=== PATIENT | male | born 1940 | race Caucasian/White ===

== ENCOUNTER 2024-12-13 01:13 | Inpatient (IN) | payer MEDICARE, MEDICAID ==
[~2024-12-13] VITALS: Ht 177.8 cm; Wt 65.5 kg
[2024-12-13] MEDS: SODIUM CHLORIDE 0.9% (SEPSIS BOLUS) IV ONE (01:46)
[2024-12-13] MEDS: ONDANSETRON HCL 4MG/2ML INJ IV STA (02:01)
[2024-12-13] MEDS: PIPERACILLIN/TAZO 3.375G/50ML 50 ML IV ONE (02:02)
[2024-12-13] MEDS: PANTOPRAZOLE SODIUM 40 MG/VIAL IV ONE (02:02)
[2024-12-13 02:07] LABS: INR 1.1; PROTHROMBIN TIME 11.8 sec (9.6-11.0)
[2024-12-13 02:11] LABS: BASOPHILS % 0.2 % (0.0-2.0); EOSINOPHILS % 4.2 % (0.0-5.0); HEMATOCRIT. 36.5 % (42.0-52.0); HEMOGLOBIN. 11.7 g/dL (14.0-18.0); LYMPHOCYTES % 15.6 % (20.0-50.0); MEAN CORPUSCULAR HEMOGLOBIN 30.7 pg (28.0-32.0); MEAN CORPUSCULAR VOLUME 95.9 fL (80.0-94.0); MEAN PLATELET VOLUME 10.2 fl (7.4-10.4); MONOCYTES % 6.5 % (2.0-8.0); NEUTROPHILS % 73.5 % (40.0-76.0); PLATELET 175 x1000/uL (130-400); RED BLOOD CELL COUNT 3.81 mill/uL (4.7-6.1); RED CELL DISTRIBUTION WIDTH 16.4 % (11.6-14.6); WHITE BLOOD COUNT 12.6 x1000/uL (4.5-11.0)
[2024-12-13] MEDS: VANCOMYCIN 1G PREMIX 200 ML IV ONE (02:44)
[2024-12-13 02:50] LABS: CHLORIDE 145 mEq/L (98-107); POTASSIUM 5.2 mEq/L (3.5-5.1)
[2024-12-13 02:51] LABS: CARBON DIOXIDE 18 mEq/L (21-32)
[2024-12-13 02:56] LABS: GLUCOSE 157 mg/dL (70-105)
[2024-12-13 02:57] LABS: TROPONIN I HIGH SENSITIVITY 51 ng/L (3.0-53)
[2024-12-13 02:58] LABS: ALANINE AMINOTRANSFERASE 84 IU/L (10-49); ALBUMIN 3.9 g/dL (3.2-4.8); ASPARTATE AMINOTRANSFERASE 49 IU/L (<34)
[2024-12-13 02:59] LABS: BILIRUBIN TOTAL 0.2 mg/dL (0.1-1.0); PROTEIN TOTAL 7.4 g/dL (6.0-8.3)
[2024-12-13 03:19] LABS: BILIRUBIN DIRECT < 0.1 mg/dL (<=3.0)
[2024-12-13 03:23] LABS: SODIUM 186 mEq/L (136-145)
[2024-12-13 03:34] LABS: UREA NITROGEN BLOOD 176 mg/dL (9-23)
[2024-12-13] MEDS: DEXT 5%/0.45% NACL 1000ML 1,000 ML IV STA (04:28)
[2024-12-13] MEDS ORDERED: GUAIFENESIN 200MG/10ML SUGAR FREE UDC PO PRN (04:45)
[2024-12-13] MEDS ORDERED: DOCUSATE SODIUM 100MG CAPSULE PO PRN (04:45)
[2024-12-13] MEDS ORDERED: ACETAMINOPHEN 325MG TABLET PO PRN (04:45)
[2024-12-13] MEDS ORDERED: ONDANSETRON HCL 4MG/2ML INJ IV PRN (04:45)
[2024-12-13] MEDS ORDERED: IPRATROPIUM/ALBUTEROL 0.5-3(2.5)MG/3ML NEB HHN PRN (04:45)
[2024-12-13] MEDS: DEXT 5%/0.45% NACL 1000ML 1,000 ML IV SCH (05:15)
[2024-12-13 05:40] LABS: BG BASE EXCESS -12.8 mmol/L (-2.0-3.0); BG CARBOXYHEMOGLOBIN 0.3 % (0.5-1.5); BG DEOXYHEMOGLOBIN 3.8 % (0.0-5.0); BG METHEMOGLOBIN 0.3 % (0.5-1.5); BG OXYGEN SATURATION 96.2 % (94.0-98.0); BG OXYHEMOGLOBIN 95.6 % (94.0-98.0); BG PCO2 20.4 mmHg (35.0-48.0); BG PH 7.351 (7.350-7.450); BG PO2 93.3 mmHg (83.0-108.0); BG TOTAL HEMOGLOBIN 9.9 g/dL (13.5-17.5); BG VENT MODE NASAL CANNULA
[2024-12-13] MEDS: NOREPINEPHRINE 8MG/250ML PMX 250 ML IV PRN (06:14)
[2024-12-13 07:45] LABS: CHLORIDE 145 mEq/L (98-107); POTASSIUM 5.5 mEq/L (3.5-5.1)
[2024-12-13 07:46] LABS: CALCIUM 8.1 mg/dL (8.7-10.4); CARBON DIOXIDE 15 mEq/L (21-32)
[2024-12-13 07:51] LABS: CREATINE KINASE MB FRACTION 2.3 ng/mL (0.5-3.6); GLUCOSE 256 mg/dL (70-105); TRIGLYCERIDE 200 mg/dL (0-150)
[2024-12-13 07:52] LABS: ALBUMIN 3.5 g/dL (3.2-4.8); LDL CHOLESTEROL 33 mg/dL (5-100)
[2024-12-13 07:53] LABS: CHOLESTEROL 97 mg/dL (<200); CREATINE KINASE 391 IU/L (46-171); HDL CHOLESTEROL < 20 mg/dL (>55)
[2024-12-13 07:55] LABS: T4 FREE 0.81 ng/dL (0.89-1.76); THYROID STIMULATING HORMONE 0.84 uIU/mL (0.55-4.78)
[2024-12-13 08:06] LABS: CREATININE 10.4 mg/dL (0.6-1.3); SODIUM 181 mEq/L (136-145); TROPONIN I HIGH SENSITIVITY 65 ng/L (3.0-53); UREA NITROGEN BLOOD 161 mg/dL (9-23)
[2024-12-13 08:23] LABS: FOLIC ACID (FOLATE) SERUM 8.05 ng/mL (>5.38)
[2024-12-13 08:31] LABS: VITAMIN B12 SERUM 815 pg/mL (211-911)
[2024-12-13 09:12] LABS: BG BASE EXCESS -13.1 mmol/L (-2.0-3.0); BG CARBOXYHEMOGLOBIN 0.3 % (0.5-1.5); BG DEOXYHEMOGLOBIN 3.2 % (0.0-5.0); BG FRACTION INSPIRED OXYGEN 36; BG HCO3 ACT 10.8 mmol/L (21.0-28.0); BG METHEMOGLOBIN 0.3 % (0.5-1.5); BG OXYGEN SATURATION 96.8 % (94.0-98.0); BG OXYHEMOGLOBIN 96.2 % (94.0-98.0); BG PCO2 20.5 mmHg (35.0-48.0); BG PH 7.338 (7.350-7.450); BG PO2 103.8 mmHg (83.0-108.0); BG SAMPLE SITE RIGHT BRACHIAL; BG TOTAL HEMOGLOBIN 10.7 g/dL (13.5-17.5); BG VENT MODE NASAL CANNULA
[2024-12-13 09:14] LABS: CLARITY URINE SL HAZY (CLEAR); COLOR URINE YELLOW (YELLOW)
[2024-12-13 09:15] LABS: GLUCOSE URINE NEGATIVE (NEGATIVE); KETONES URINE NEGATIVE (NEGATIVE); LEUKOCYTE ESTERASE URINE 2+ (NEGATIVE); NITRITE URINE NEGATIVE (NEGATIVE); OCCULT BLOOD URINE 3+ (NEGATIVE); PROTEIN URINE 1+ (NEGATIVE); SPECIFIC GRAVITY URINE 1.025 (1.005-1.030); UROBILINOGEN URINE 0.2 E.U./dL (0.2-1.0)
[2024-12-13] MEDS ORDERED: DEXTROSE 50% WATER 50ML SYRINGE IV PRN (09:30)
[2024-12-13 09:32] LABS: BACTERIA URINE 1+; SQUAMOUS EPITHELIAL CELL URINE FEW /lpf (RARE/1+); YEAST URINE NONE SEEN
[2024-12-13 10:18] LABS: LACTIC ACID 2.4 mmol/L (0.4-2.0); PHOSPHORUS 6.7 mg/dL (2.5-4.9)
[2024-12-13] MEDS: PIPERACILLIN/TAZO 3.375G/50ML 50 ML IV SCH (10:53)
[2024-12-13] MEDS: PANTOPRAZOLE SODIUM 40 MG/VIAL IV SCH (10:53)
[2024-12-13] MEDS: SODIUM BICARBONATE 8.4% 50MEQ/50ML SYR IV NR (10:53)
[2024-12-13] MEDS: VANCOMYCIN 750MG PREMIX 150 ML IV SCH (11:39)
[2024-12-13] MEDS: IPRATROPIUM/ALBUTEROL 0.5-3(2.5)MG/3ML NEB HHN SCH (12:00)
[2024-12-13 12:31] LABS: POTASSIUM 4.8 mEq/L (3.5-5.1)
[2024-12-13 12:33] LABS: CALCIUM 8.4 mg/dL (8.7-10.4)
[2024-12-13 12:54] LABS: CREATININE 9.9 mg/dL (0.6-1.3)
[2024-12-13] MEDS: BLOOD SUGAR DIAGNOSTIC STRIP TEST SCH (14:53)
[2024-12-13] MEDS: INSULIN LISPRO 100 UNITS/ML SUBCUT SCH (14:58)
[2024-12-13 15:15] LABS: CREATINE KINASE MB FRACTION 3.8 ng/mL (0.5-3.6)
[2024-12-13 16:45] LABS: HEMATOCRIT 30.9 % (42.0-52.0); HEMOGLOBIN 9.9 g/dL (14.0-18.0)
[2024-12-13] MEDS: DEXTROSE 5% WATER 1,000 ML IV SCH (17:16)
[2024-12-13 17:20] LABS: IRON 82 ug/dL (65-175)
[2024-12-13 17:23] LABS: TOTAL IRON BINDING CAPACITY 145 ug/dl (250-425)
[2024-12-13 17:29] LABS: SODIUM 188 mEq/L (136-145)
[2024-12-13 19:15] LABS: POTASSIUM 4.2 mEq/L (3.5-5.1)
[2024-12-13 19:43] LABS: CREATININE 8.2 mg/dL (0.6-1.3)
[2024-12-13 21:39] VITALS: PULSE 75; RESP 18; O2SAT 98
[2024-12-14] VITALS (54 sets, daily range): BP systolic 80–163; BP diastolic 46–136; PULSE 66–117; RESP 14–24; TEMP 36.6–36.7; O2SAT 92–100
[2024-12-14 00:36] LABS: POTASSIUM 4.3 mEq/L (3.5-5.1)
[2024-12-14 02:55] LABS: CALCIUM 8.3 mg/dL (8.7-10.4)
[2024-12-14 03:02] LABS: CREATININE 7.3 mg/dL (0.6-1.3)
[2024-12-14 04:44] LABS: BASOPHILS % 0.4 % (0.0-2.0); EOSINOPHILS % 4.3 % (0.0-5.0); HEMATOCRIT. 30.8 % (42.0-52.0); HEMOGLOBIN. 9.6 g/dL (14.0-18.0); LYMPHOCYTES % 12.4 % (20.0-50.0); MEAN CORPUSCULAR HEMOGLOBIN 30.1 pg (28.0-32.0); MEAN CORPUSCULAR HGB CONC 31.3 g/dL (31.0-37.0); MEAN CORPUSCULAR VOLUME 96.3 fL (80.0-94.0); MEAN PLATELET VOLUME 10.1 fl (7.4-10.4); MONOCYTES % 6.4 % (2.0-8.0); NEUTROPHILS % 76.5 % (40.0-76.0); PLATELET 164 x1000/uL (130-400); RED CELL DISTRIBUTION WIDTH 17.1 % (11.6-14.6); WHITE BLOOD COUNT 9.5 x1000/uL (4.5-11.0)
[2024-12-14 04:58] LABS: CHLORIDE 150 mEq/L (98-107)
[2024-12-14 04:59] LABS: CALCIUM 8.4 mg/dL (8.7-10.4); CARBON DIOXIDE 19 mEq/L (21-32)
[2024-12-14 05:04] LABS: GLUCOSE 191 mg/dL (70-105)
[2024-12-14 05:06] LABS: ALANINE AMINOTRANSFERASE 58 IU/L (10-49); ALBUMIN 3.4 g/dL (3.2-4.8); ASPARTATE AMINOTRANSFERASE 49 IU/L (<34); BILIRUBIN TOTAL 0.3 mg/dL (0.1-1.0); PHOSPHORUS 3.8 mg/dL (2.5-4.9); PROTEIN TOTAL 6.5 g/dL (6.0-8.3)
[2024-12-14 05:38] LABS: SODIUM 186 mEq/L (136-145)
[2024-12-14 05:40] LABS: UREA NITROGEN BLOOD 114 mg/dL (9-23)
[2024-12-14 05:41] LABS: CREATININE 6.4 mg/dL (0.6-1.3)
[2024-12-15] VITALS (32 sets, daily range): BP systolic 98–140; BP diastolic 48–101; PULSE 54–96; RESP 14–20; TEMP 35.9–37; O2SAT 97–100
[2024-12-15] MEDS: INSULIN LISPRO 100 UNITS/ML SUBCUT SCH
[2024-12-15 01:28] LABS: SODIUM URINE RANDOM 96 mEq/L
[2024-12-15 02:29] LABS: OSMOLALITY URINE 471 mOsm/kg (500-850)
[2024-12-15 05:08] LABS: BASOPHILS % 0.4 % (0.0-2.0); EOSINOPHILS % 10.3 % (0.0-5.0); HEMATOCRIT. 29.4 % (42.0-52.0); HEMOGLOBIN. 9.2 g/dL (14.0-18.0); LYMPHOCYTES % 16.6 % (20.0-50.0); MEAN CORPUSCULAR HEMOGLOBIN 30.4 pg (28.0-32.0); MEAN CORPUSCULAR HGB CONC 31.3 g/dL (31.0-37.0); MEAN CORPUSCULAR VOLUME 97.2 fL (80.0-94.0); MEAN PLATELET VOLUME 10.5 fl (7.4-10.4); MONOCYTES % 6.2 % (2.0-8.0); NEUTROPHILS % 66.5 % (40.0-76.0); PLATELET 141 x1000/uL (130-400); RED BLOOD CELL COUNT 3.02 mill/uL (4.7-6.1); RED CELL DISTRIBUTION WIDTH 16.3 % (11.6-14.6)
[2024-12-15 05:29] LABS: CHLORIDE 143 mEq/L (98-107); POTASSIUM 3.7 mEq/L (3.5-5.1)
[2024-12-15 05:32] LABS: CARBON DIOXIDE 22 mEq/L (21-32)
[2024-12-15 05:33] LABS: CALCIUM 8.2 mg/dL (8.7-10.4)
[2024-12-15 05:38] LABS: GLUCOSE 100 mg/dL (70-105); UREA NITROGEN BLOOD 77 mg/dL (9-23)
[2024-12-15 05:39] LABS: ALANINE AMINOTRANSFERASE 57 IU/L (10-49); ALBUMIN 3.2 g/dL (3.2-4.8); ASPARTATE AMINOTRANSFERASE 84 IU/L (<34)
[2024-12-15 05:40] LABS: BILIRUBIN TOTAL 0.5 mg/dL (0.1-1.0); PHOSPHORUS 4.2 mg/dL (2.5-4.9); PROTEIN TOTAL 6.5 g/dL (6.0-8.3)
[2024-12-15 06:02] LABS: CREATININE 3.8 mg/dL (0.6-1.3)
[2024-12-15 06:03] LABS: SODIUM 177 mEq/L (136-145)
[2024-12-15] MEDS: MENTHOL/LANOLIN/CALAMINE/ZN OX OINT 71GM TOP SCH (09:45)
[2024-12-15] MEDS: VANCOMYCIN 750MG PREMIX 150 ML IV SCH (12:27)
[2024-12-15] MEDS: ACETAMINOPHEN 325MG TABLET PO PRN (20:53)
[2024-12-16] VITALS (16 sets, daily range): BP systolic 67–158; BP diastolic 39–91; PULSE 63–112; RESP 14–24; TEMP 36.1–37; O2SAT 97–100
[2024-12-16] MEDS: LORAZEPAM 0.5MG TABLET PO PRN (01:59)
[2024-12-16 07:37] LABS: CALCIUM 7.7 mg/dL (8.7-10.4)
[2024-12-16 07:50] LABS: HEMATOCRIT 28.2 % (42.0-52.0); HEMOGLOBIN 9.2 g/dL (14.0-18.0); MEAN CORPUSCULAR HEMOGLOBIN 30.7 pg (28.0-32.0); MEAN CORPUSCULAR HGB CONC 32.7 g/dL (31.0-37.0); MEAN CORPUSCULAR VOLUME 93.8 fL (80.0-94.0); PLATELET 126 x1000/uL (130-400); RED BLOOD CELL COUNT 3.01 mill/uL (4.7-6.1); RED CELL DISTRIBUTION WIDTH 14.7 % (11.6-14.6); WHITE BLOOD COUNT 7.6 x1000/uL (4.5-11.0)
[2024-12-16 08:35] LABS: CREATININE 2.3 mg/dL (0.6-1.3)
[2024-12-16] MEDS: PIPERACILLIN/TAZO 3.375G/50ML 50 ML IV SCH (15:30)
[2024-12-16] MEDS ORDERED: KCL 20MEQ/100ML PREMIX 100 ML IV SCH (17:00)
[2024-12-16] MEDS ORDERED: POTASSIUM CHLORIDE 20 MEQ in SODIUM CHLORIDE 0.9% 90 ML IV SCH (17:00)
[2024-12-16] MEDS: POTASSIUM CHLORIDE 40MEQ in DEXT 5% WATER 250ML IV NR (21:28)
[2024-12-17] VITALS (15 sets, daily range): BP systolic 98–119; BP diastolic 46–96; PULSE 65–112; RESP 15–21; TEMP 36.4–36.7; O2SAT 98–100
[2024-12-17 05:56] LABS: CALCIUM 7.6 mg/dL (8.7-10.4); POTASSIUM 3.2 mEq/L (3.5-5.1)
[2024-12-17 06:01] LABS: CREATININE 1.7 mg/dL (0.6-1.3)
[2024-12-17] MEDS: VANCOMYCIN 1GM/200ML PMX (BAXTER) IV SCH (12:39)
[2024-12-17] MEDS: POTASSIUM CHLORIDE 20 MEQ in DEXT 5% WATER 100 ML IV SCH (12:39)
[2024-12-18] VITALS (11 sets, daily range): BP systolic 101–128; BP diastolic 69–94; PULSE 82–96; RESP 16–26; TEMP 36.4–37.1; O2SAT 97–100
[2024-12-18 06:20] LABS: CARBON DIOXIDE 23 mEq/L (21-32); CHLORIDE 121 mEq/L (98-107); POTASSIUM 3.9 mEq/L (3.5-5.1); SODIUM 153 mEq/L (136-145)
[2024-12-18 06:21] LABS: CALCIUM 8.3 mg/dL (8.7-10.4)
[2024-12-18 06:25] LABS: CREATININE 1.7 mg/dL (0.6-1.3); GLUCOSE 148 mg/dL (70-105)
[2024-12-18 06:26] LABS: UREA NITROGEN BLOOD 27 mg/dL (9-23)
[2024-12-18 06:28] LABS: PHOSPHORUS 1.9 mg/dL (2.5-4.9)
[2024-12-18 07:24] LABS: BASOPHILS % 0.3 % (0.0-2.0); EOSINOPHILS % 11.5 % (0.0-5.0); HEMATOCRIT. 30.6 % (42.0-52.0); HEMOGLOBIN. 10.2 g/dL (14.0-18.0); LYMPHOCYTES % 14.6 % (20.0-50.0); MEAN CORPUSCULAR HEMOGLOBIN 30.8 pg (28.0-32.0); MEAN CORPUSCULAR HGB CONC 33.3 g/dL (31.0-37.0); MEAN CORPUSCULAR VOLUME 92.4 fL (80.0-94.0); MEAN PLATELET VOLUME 10.5 fl (7.4-10.4); NEUTROPHILS % 68.6 % (40.0-76.0); PLATELET 181 x1000/uL (130-400); RED BLOOD CELL COUNT 3.31 mill/uL (4.7-6.1); RED CELL DISTRIBUTION WIDTH 14.3 % (11.6-14.6); WHITE BLOOD COUNT 10.4 x1000/uL (4.5-11.0)
[2024-12-18] MEDS ORDERED: IPRATROPIUM/ALBUTEROL 0.5-3(2.5)MG/3ML NEB HHN PRN (09:15)
[2024-12-18] MEDS: POTASSIUM PHOSPHATE 20 MMOL in DEXT 5% WATER 243.3333 ML IV NR (15:23)
[2024-12-18] MEDS: MENTHOL/LANOLIN/CALAMINE/ZN OX OINT 71GM TOP SCH (21:34)
[2024-12-19] VITALS (8 sets, daily range): BP systolic 96–146; BP diastolic 68–103; PULSE 86–95; RESP 15–24; TEMP 36.6–36.9; O2SAT 96–100
[2024-12-19 04:42] LABS: BASOPHILS % 0.4 % (0.0-2.0); HEMATOCRIT. 30.5 % (42.0-52.0); HEMOGLOBIN. 10.3 g/dL (14.0-18.0); MEAN CORPUSCULAR HEMOGLOBIN 30.2 pg (28.0-32.0); MEAN CORPUSCULAR HGB CONC 33.6 g/dL (31.0-37.0); MEAN CORPUSCULAR VOLUME 89.8 fL (80.0-94.0); MEAN PLATELET VOLUME 9.9 fl (7.4-10.4); MONOCYTES % 4.1 % (2.0-8.0); NEUTROPHILS % 71.5 % (40.0-76.0); PLATELET 214 x1000/uL (130-400); WHITE BLOOD COUNT 11.1 x1000/uL (4.5-11.0)
[2024-12-19 04:55] LABS: CHLORIDE 120 mEq/L (98-107); POTASSIUM 3.8 mEq/L (3.5-5.1); SODIUM 152 mEq/L (136-145)
[2024-12-19 04:56] LABS: CALCIUM 7.9 mg/dL (8.7-10.4); CARBON DIOXIDE 22 mEq/L (21-32)
[2024-12-19 05:01] LABS: CREATININE 1.5 mg/dL (0.6-1.3); GLUCOSE 146 mg/dL (70-105); UREA NITROGEN BLOOD 29 mg/dL (9-23)
[2024-12-19 05:03] LABS: PHOSPHORUS 2.9 mg/dL (2.5-4.9)
[2024-12-19] MEDS: FAMOTIDINE 20MG/2ML VIAL IV SCH (09:51)
[2024-12-20] VITALS: BP 124/63; PULSE 78; RESP 17; TEMP 36.4; O2SAT 100
[2024-12-20 04:00] VITALS: BP 136/76; PULSE 76; RESP 14; TEMP 36.6; O2SAT 99
[2024-12-20 05:56] LABS: POTASSIUM 3.7 mEq/L (3.5-5.1)
[2024-12-20 05:57] LABS: CALCIUM 8.2 mg/dL (8.7-10.4)
[2024-12-20 06:02] LABS: CREATININE 1.4 mg/dL (0.6-1.3)
[2024-12-20 07:42] LABS: HEMOGLOBIN. 10.1 g/dL (14.0-18.0); MEAN CORPUSCULAR HEMOGLOBIN 31.1 pg (28.0-32.0); MEAN CORPUSCULAR HGB CONC 33.6 g/dL (31.0-37.0); MEAN CORPUSCULAR VOLUME 92.6 fL (80.0-94.0); MEAN PLATELET VOLUME 10.2 fl (7.4-10.4); PLATELET 226 x1000/uL (130-400); RED BLOOD CELL COUNT 3.23 mill/uL (4.7-6.1); RED CELL DISTRIBUTION WIDTH 14.2 % (11.6-14.6); WHITE BLOOD COUNT 9.7 x1000/uL (4.5-11.0)
[2024-12-20 07:56] LABS: DIFFERENTIAL COMMENT 1
[2024-12-20 08:00] VITALS: BP 122/66; PULSE 76; RESP 15; TEMP 36.7; O2SAT 99
[2024-12-20 12:00] VITALS: BP 126/67; PULSE 74; RESP 13; TEMP 36.4; O2SAT 100
[2024-12-20 16:00] VITALS: BP 109/77; PULSE 76; RESP 24; TEMP 36.3; O2SAT 100
[2024-12-20 16:17] LABS: PLATELET ESTIMATE NORMAL
[2024-12-20 20:00] VITALS: BP 105/63; PULSE 68; RESP 18; TEMP 36.7; O2SAT 99
[2024-12-21] VITALS (7 sets, daily range): BP systolic 99–134; BP diastolic 59–113; PULSE 71–88; RESP 13–21; TEMP 36.1–36.8; O2SAT 98–100
[2024-12-21] MEDS: CLONIDINE 0.1MG TABLET PO PRN (04:15)
[2024-12-21 08:20] LABS: POTASSIUM 3.8 mEq/L (3.5-5.1)
[2024-12-21 08:21] LABS: CALCIUM 8.1 mg/dL (8.7-10.4)
[2024-12-21 08:26] LABS: CREATININE 1.3 mg/dL (0.6-1.3)
[2024-12-21 08:57] LABS: HEMATOCRIT. 27.6 % (42.0-52.0); HEMOGLOBIN. 9.2 g/dL (14.0-18.0); MEAN CORPUSCULAR HEMOGLOBIN 29.9 pg (28.0-32.0); MEAN CORPUSCULAR HGB CONC 33.5 g/dL (31.0-37.0); MEAN CORPUSCULAR VOLUME 89.4 fL (80.0-94.0); MEAN PLATELET VOLUME 9.9 fl (7.4-10.4); PLATELET 249 x1000/uL (130-400); RED BLOOD CELL COUNT 3.09 mill/uL (4.7-6.1); RED CELL DISTRIBUTION WIDTH 13.6 % (11.6-14.6); WHITE BLOOD COUNT 9.5 x1000/uL (4.5-11.0)
[2024-12-21 09:18] LABS: DIFFERENTIAL COMMENT 1
[2024-12-21 17:04] LABS: PLATELET ESTIMATE NORMAL
[2024-12-22] VITALS: BP 108/91; PULSE 77; RESP 16; TEMP 36.7; O2SAT 100
[2024-12-22 04:00] VITALS: BP 107/54; PULSE 80; RESP 15; TEMP 36.7; O2SAT 94
[2024-12-22 08:00] VITALS: BP 113/67; PULSE 81; RESP 14; TEMP 36.6; O2SAT 97
[2024-12-22 12:00] VITALS: BP 101/59; PULSE 87; RESP 17; TEMP 37.4; O2SAT 92
[2024-12-22 16:00] VITALS: BP 118/73; PULSE 82; RESP 17; TEMP 37.4; O2SAT 97
[2024-12-22 20:00] VITALS: BP 92/61; PULSE 80; RESP 20; TEMP 37.1; O2SAT 95
[2024-12-22] MEDS: DEXT 5%/0.45% NACL 1000ML 1,000 ML IV SCH (20:16)
[2024-12-23] VITALS: BP 101/63; PULSE 78; RESP 21; TEMP 36.1; O2SAT 99
[2024-12-23 04:00] VITALS: BP 99/68; PULSE 89; RESP 20; TEMP 37.1; O2SAT 95
[2024-12-23 08:00] VITALS: BP 136/71; PULSE 70; RESP 18; TEMP 36.3; O2SAT 98
[2024-12-23 12:00] VITALS: BP 115/68; PULSE 67; RESP 18; TEMP 36.4; O2SAT 98
[2024-12-23 16:00] VITALS: BP 137/87; PULSE 94; RESP 18; TEMP 36.4; O2SAT 97
[2024-12-24] VITALS (7 sets, daily range): BP systolic 103–148; BP diastolic 64–99; PULSE 64–118; RESP 16–18; TEMP 36.1–36.8; O2SAT 96–98
[2024-12-25] MEDS ORDERED: ZINC SULFATE 220 MG ( 50 ) CAPSULE PO SCH (09:00)
[2024-12-25] MEDS ORDERED: ASCORBIC ACID 500 MG TABLET PO SCH (09:00)
[2024-12-25] MEDS ORDERED: MULTIVITAMINS,THER W-MINERALS TABLET PO SCH (09:00)
== END 2024-12-24 17:10 | DRG 871 ==
LOC: ER 01:13 → MICUSO 12-14 04:02 → 5EST 12-15 14:45 → 6WST 12-22 23:32
PROVIDERS: ADMIT Hospitalist; ATTEND Hospitalist
DX: A41.9 Sepsis, unspecified organism (principal); G93.41 Metabolic encephalopathy; R65.21 Severe sepsis with septic shock; N18.6 End stage renal disease; J96.01 Acute respiratory failure with hypoxia; I21.A1 Myocardial infarction type 2; J69.0 Pneumonitis due to inhalation of food and vomit; E87.0 Hyperosmolality and hypernatremia; E87.20 Acidosis, unspecified; I13.2 Hypertensive heart and chronic kidney disease with heart failure and with stage 5 chronic kidney disease, or end stage renal disease; N17.9 Acute kidney failure, unspecified; J44.0 Chronic obstructive pulmonary disease with (acute) lower respiratory infection; S22.31XA Fracture of one rib, right side, initial encounter for closed fracture; E87.3 Alkalosis; D53.9 Nutritional anemia, unspecified; E11.22 Type 2 diabetes mellitus with diabetic chronic kidney disease; E11.65 Type 2 diabetes mellitus with hyperglycemia; E86.0 Dehydration; E87.5 Hyperkalemia; G40.909 Epilepsy, unspecified, not intractable, without status epilepticus; I50.9 Heart failure, unspecified; Z20.822 Contact with and (suspected) exposure to COVID-19; F03.90 Unspecified dementia, unspecified severity, without behavioral disturbance, psychotic disturbance, mood disturbance, and anxiety; R62.7 Adult failure to thrive; F41.9 Anxiety disorder, unspecified; R00.0 Tachycardia, unspecified; E87.8 Other disorders of electrolyte and fluid balance, not elsewhere classified; E83.51 Hypocalcemia; E78.1 Pure hyperglyceridemia; Z96.641 Presence of right artificial hip joint; Z74.01 Bed confinement status; Z79.4 Long term (current) use of insulin; Z79.899 Other long term (current) drug therapy; Z68.20 Body mass index [BMI] 20.0-20.9, adult; X58.XXXA Exposure to other specified factors, initial encounter; Y93.89 Activity, other specified; Y92.89 Other specified places as the place of occurrence of the external cause; Y99.8 Other external cause status
CPT/HCPCS: 36415; 36600; 71045; 74018; 80048; 80053; 80061; 80076; 80202; 81003; 82040; 82375; 82550; 82553; 82607; 82728; 82746; 82805; 82962; 83036; 83540; 83550; 83605; 83735; 83880; 83930; 83935; 84100; 84145; 84295; 84300; 84439; 84443; 84484; 85014; 85018; 85025; 85027; 85044; 86850; 86900; 87426; 92610; 93005; 94070; 94640; 94664; 99291; A4606; A6261; J1815; J2405; J2470; J2543; J3370; J3480; J3490; J7030; J7050; J7060; J7070